=== PATIENT | male | born 1990 ===

== ENCOUNTER 2016-10-21 00:26 | Emergency (ER) | payer BC ==
[2016-10-21 01:36] VITALS: BMI 43.7
[2016-10-21 01:40] VITALS: RESP 18; TEMP 98.7
[2016-10-21] MEDS ORDERED: Sodium Chloride 0.9% 1,000 ML IV STA (01:40)
--- NOTE | 2016-10-21 01:40 | ED PDOC ---
Arrival/HPI - General Time Seen by Provider: 10/21/16 01:36 Historian: Patient - History of Present Illness Narrative History of Present Illness (Text): 10/21/16 01:40 Howard Grayson is a 26 year old male, whose past medical history includes kidney stones, who presents to the ED complaining of left-sided abdominal discomfort for the past week. Patient describes discomfort as a cramping sensation, which worsened tonight. Patient denies any fever, chills, chest pain, shortness of breath, nausea, vomiting, diarrhea, changes in bowel movements, urinary symptoms , back pain, neck pain, headache, dizziness, or any other complaints. Time/Duration: 1 week Symptom Onset: Gradual Symptom Course: Worsening Quality: Cramping Activities at Onset: Rest, Light Context: Home Past Medical History - Provider Review Nursing Documentation Reviewed: Yes - Infectious Disease Hx of Infectious Diseases: None - Tetanus Immunization Tetanus Immunization: Unknown - Past Medical History Past Medical History: No Previous - Cardiac Hx Cardiac Disorders: No - Pulmonary Hx Respiratory Disorders: Yes Hx Asthma: Yes Hx Bronchitis: Yes - Neurological Hx Neurological Disorder: No - HEENT Hx HEENT Disorder: No - Renal Hx Renal Disorder: No - Endocrine/Metabolic Hx Endocrine Disorders: No - Hematological/Oncological Hx Blood Disorders: No - Integumentary Hx Dermatological Disorder: No - Musculoskeletal/Rheumatological Hx Musculoskeletal Disorders: No - Gastrointestinal Hx Gastrointestinal Disorders: No - Genitourinary/Gynecological Hx Genitourinary Disorders: No - Psychiatric Hx Psychophysiologic Disorder: Yes Hx Anxiety: Yes Hx Bipolar Disorder: Yes Hx Depression: No Hx Emotional Abuse: No Hx Physical Abuse: No Hx Substance Use: No (smokes marijuana occasionally) - Surgical History Hx Orthopedic Surgery: Yes (left tibia/osteomylitis) - Anesthesia Hx Anesthesia: Yes Hx Anesthesia Reactions: No Hx Malignant Hyperthermia: No - Suicidal Assessment Feels Threatened In Home Enviroment: No Family/Social History - Physician Review Nursing Documentation Reviewed: Yes Family/Social History: No Known Family HX Smoking Status: Former Smoker (quit in 2014) Hx Alcohol Use: No Hx Substance Use: No (smokes marijuana occasionally) Hx Substance Use Treatment: No Allergies/Home Meds Allergies/Adverse Reactions: Allergies No Known Allergies Allergy (Verified 07/24/16 01:00) Home Medications: Home Meds Medication Instructions Recorded Confirmed Unobtainable 10/21/16 10/21/16 Review of Systems - Physician Review All systems were reviewed & negative as marked: Yes - Review of Systems Constitutional: Normal. absent: Fevers Eyes: Normal ENT: Normal Respiratory: Normal. absent: SOB, Cough Cardiovascular: Normal. absent: Chest Pain Gastrointestinal: Abdominal Pain Genitourinary Male: Normal. absent: Dysuria, Frequency, Hematuria, Urinary Output Changes Musculoskeletal: Normal. absent: Back Pain, Neck Pain Skin: Normal. absent: Rash Neurological: Normal. absent: Headache, Dizziness Endocrine: Normal Hemo/Lymphatic: Normal Psychiatric: Normal Physical Exam Vital Signs Reviewed: Yes Vital Signs Temp Pulse Resp BP Pulse Ox 10/21/16 04:51 64 18 132/74 96 10/21/16 01:39 98.7 F 79 18 142/77 98 Temperature: Afebrile Blood Pressure: Normal Pulse: Regular Respiratory Rate: Normal Appearance: Positive for: Well-Appearing, Non-Toxic, Comfortable Pain Distress: None Mental Status: Positive for: Alert and Oriented X 3 - Systems Exam Head: Present: Atraumatic, Normocephalic Pupils: Present: PERRL Extroacular Muscles: Present: EOMI Conjunctiva: Present: Normal Mouth: Present: Moist Mucous Membranes Neck: Present: Normal Range of Motion Respiratory/Chest: Present: Clear to Auscultation, Good Air Exchange. No: Respiratory Distress, Accessory Muscle Use Cardiovascular: Present: Regular Rate and Rhythm, Normal S1, S2. No: Murmurs Abdomen: Present: Normal Bowel Sounds. No: Tenderness, Distention, Peritoneal Signs Back: Present: Normal Inspection Upper Extremity: Present: Normal Inspection. No: Cyanosis, Edema Lower Extremity: Present: Normal Inspection. No: Edema Neurological: Present: GCS=15, CN II-XII Intact, Speech Normal Skin: Present: Warm, Dry, Normal Color. No: Rashes Psychiatric: Present: Alert, Oriented x 3, Normal Insight, Normal Concentration Medical Decision Making ED Course and Treatment: 10/21/16 01:40 Impression: 26 year old left-sided abdominal cramping for 1 week. Plan: -- CT Abdomen and Pelvis w/o contrast -- Labs, lipase -- Urinalysis -- IV fluids -- Zofran -- Protonix -- Reassess and disposition Prior Visits: Notes and results from previous visits were reviewed. Progress Notes: 10/21/16 02:48 Reviewed radiology, CT Abdomen and Pelvis shows: 1. Enlarged, fatty infiltrated liver. 2. Nonobstructing right nephrolithiasis. 3. Right adrenal nodule. 10/21/16 04:40 On re-evaluation, the patient feels better and is in no acute distress. I have discussed the results and plan with the patient, who expresses understanding. Patient in agreement with plan to discharged home. Patient is stable for discharge. Patient was instructed to follow up with physician/clinic in 1-2 days or return if symptoms worsen or new concerning symptoms arise. Re-evaluation Time: 04:45 Reassessment Condition: Re-examined, Improved - Lab Interpretations Lab Results: 10/21/16 01:53 10/21/16 01:53 Lab Results 10/21/16 03:10: Urine Color Yellow, Urine Appearance Clear, Urine pH 6.0, Ur Specific [place] 1.025, Urine Protein Negative, Urine Glucose (UA) Negative, Urine Ketones Negative, Urine Blood Negative, Urine Nitrate Negative, Urine Bilirubin Negative, Urine Urobilinogen 0.2, Ur Leukocyte Esterase Negative 10/21/16 01:53: WBC 6.4, RBC 4.83, Hgb 15.1, Hct 41.9 L, MCV 86.7, MCH 31.3, MCHC 36.0, RDW 12.7, Plt Count 146, MPV 12.8 H, Gran % 60.6, Lymph % (Auto) 25.3 , [place] % (Auto) 10.0 H, Eos % (Auto) 3.9, Baso % (Auto) 0.2, Gran # 3.86, Lymph # 1.6, [place] # 0.6, Eos # 0.3, Baso # 0.01, PT 10.6, INR 0.98, APTT 27.3, Sodium 136, Potassium 4.2, Chloride 101, Carbon Dioxide 25, Anion Gap 14, BUN 18, Creatinine 0.7, Est GFR ( Amer) > 60, Est GFR (Non-Af Amer) > 60, Random Glucose 102, Calcium 9.4, Total Bilirubin 0.6, AST 81 H, ALT 146 H, Alkaline Phosphatase 62, Total Protein 8.7 H, Albumin 4.3, Globulin 4.3, Albumin/ Globulin Ratio 1.0 L, Lipase 62 I have reviewed the lab results: Yes - RAD Interpretation Narrative RAD Interpretations (Text): CT Abdomen and Pelvis shows: Lower thorax: No acute findings. ABDOMEN: Liver: Enlarged, fatty infiltrated liver. Gallbladder and bile ducts: Unremarkable. No calcified stones. No ductal dilation. Pancreas: Unremarkable. No ductal dilation. Spleen: Unremarkable. No splenomegaly. Adrenals: Right adrenal nodule. Kidneys and ureters: Nonobstructing right nephrolithiasis. Stomach and bowel: Unremarkable. No obstruction. No mucosal thickening. Appendix: No findings to suggest acute appendicitis. PELVIS: Bladder: Unremarkable. No stones. Reproductive: Unremarkable as visualized. ABDOMEN and PELVIS: Intraperitoneal space: Unremarkable. No free air. No significant fluid collection. Bones/joints: No acute fracture. No dislocation. Soft tissues: Unremarkable. Vasculature: Unremarkable. No abdominal aortic aneurysm. Lymph nodes: Unremarkable. No enlarged lymph nodes. IMPRESSION: 1. Enlarged, fatty infiltrated liver. 2. Nonobstructing right nephrolithiasis. 3. Right adrenal nodule. Radiology Orders: 10/21/16 01:41 ABD & PELVIS W/O PO OR IV CONT [CT] Stat [place] Department Supervisor: Radiologist - Medication Orders Current Medication Orders: Discontinued Medications Sodium Chloride (Sodium Chloride 0.9%) 1,000 mls @ 100 mls/hr IV .Q10H STA Stop: 10/21/16 11:39 Last Admin: 10/21/16 02:03 Dose: 100 MLS/HR eMAR Start Stop Document 10/21/16 02:03 SB (Rec: 10/21/16 02:03 [id number]) Intravenous Solution Start Date 10/21/16 Start Time 02:03 End Date 10/21/16 Ondansetron HCl (Zofran Inj) 4 mg IVP STAT STA Stop: 10/21/16 01:41 Last Admin: 10/21/16 02:03 Dose: 4 MG IVP Administration Document 10/21/16 02:03 SB (Rec: 10/21/16 02:03 [id number] Charges for Administration # of IVP Administrations 1 Pantoprazole Sodium (Protonix Inj) 40 mg IVP STAT STA Stop: 10/21/16 01:41 Last Admin: 10/21/16 02:03 Dose: 40 MG IVP Administration Document 10/21/16 02:03 SB (Rec: 10/21/16 02:03 [id number] Charges for Administration # of IVP Administrations 1 - Scribe Statement The provider has reviewed the documentation as recorded by the Angela Calles Provider Attestation: All medical record entries made by the Angela were at my direction and personally dictated by me. I have reviewed the chart and agree that the record accurately reflects my personal performance of the history, physical exam, medical decision making, and the department course for this patient. I have also personally directed, reviewed, and agree with the discharge instructions and disposition. Disposition/Present on Arrival - Present on Arrival Any Indicators Present on Arrival: No History of DVT/PE: No History of Uncontrolled Diabetes: No Urinary Catheter: No History Surgical Site Infection Following: None - Disposition Have Diagnosis and Disposition been Completed?: Yes Diagnosis: Flank pain Disposition: HOME/ ROUTINE Disposition Time: 04:45 Condition: GOOD Discharge Instructions (ExitCare): Flank Pain (ED)
[2016-10-21 02:13] LABS: ADD MANUAL DIFF? NO
[2016-10-21 02:17] LABS: BASO # 0.01 K/mm3 (0.0-2.0); BASO % 0.2 % (0.0-3.0); EOS # 0.3 (0.0-0.7); EOS % 3.9 % (1.5-5.0); GRAN # 3.86 (1.4-6.5); GRAN % 60.6 % (50.0-68.0); HEMATOCRIT 41.9 % (42.0-52.0); LYMPH # 1.6 (1.2-3.4); LYMPH % 25.3 % (22.0-35.0); MEAN CELL VOLUME 86.7 fL (80.0-105.0); MEAN CORPUSCULAR HEMOGLOBIN 31.3 pg (25.0-35.0); MEAN PLATELET VOLUME 12.8 fl (7.0-11.0); MONO # 0.6 (0.1-0.6); PLATELET COUNT 146 10^3/uL (120.0-450.0); RED CELL DISTRIBUTION WIDTH 12.7 % (11.5-14.5); WHITE BLOOD COUNT 6.4 10^3/ul (4.5-11.0)
[2016-10-21 02:24] LABS: INR 0.98 (0.93-1.08); PARTIAL THROMBOPLASTIN TIME 27.3 Seconds (23.7-30.8)
[2016-10-21 02:25] LABS: ALKALINE PHOSPHATASE 62 U/L (38-133); ALT/SGPT 146 U/L (7-56); AST/SGOT 81 U/L (15-59); BILIRUBIN,TOTAL 0.6 mg/dL (0.2-1.3); BLOOD UREA NITROGEN 18 mg/dL (7-21); CALCIUM 9.4 mg/dL (8.4-10.5); CARBON DIOXIDE 25 mmol/L (21-33); CHLORIDE 101 mmol/L (98-107); GFR AFRICAN-AMERICAN > 60; GLUCOSE,RANDOM 102 mg/dL (70-110); LIPASE 62 U/L (23-300); POTASSIUM 4.2 mmol/L (3.6-5.0); SODIUM 136 mmol/L (132-148); TOTAL PROTEIN 8.7 g/dL (5.8-8.3)
[2016-10-21 03:36] LABS: URINE BILIRUBIN NEGATIVE (NEGATIVE); URINE BLOOD NEGATIVE (NEGATIVE); URINE GLUCOSE (UA) NEGATIVE (NEGATIVE); URINE KETONE NEGATIVE (NEGATIVE); URINE LEUKOCYTE ESTERASE NEGATIVE Leu/uL (NEGATIVE); URINE PROTEIN NEGATIVE mg/dL (<30 mg/dL); URINE UROBILINOGEN 0.2 E.U./dL (<1 E.U./dL)
[2016-10-21 03:40] LABS: URINE APPEARANCE CLEAR (CLEAR); URINE COLOR YELLOW (YELLOW)
[2016-10-21 04:52] VITALS: BP 132/74; PULSE 64; O2SAT 96
--- NOTE | 2016-10-21 08:17 | CT ---
PROCEDURE: CT Abdomen and Pelvis without intravenous contrast HISTORY: Left upper quadrant pain COMPARISON: 03/30/2015 TECHNIQUE: CT scan of the abdomen and pelvis was performed for targeted evaluation of urinary calculi without administration of oral or intravenous contrast. This CT exam was performed using one or more of the following dose reduction techniques: Automated exposure control, adjustment of the MA and/or KV according to patient size, and/or use of iterative reconstruction technique. Radiation dose: Total exam DLP = 1384.62 mGy-cm. FINDINGS: LOWER THORAX: The lung bases are clear. LIVER: The liver is enlarged and there is diffuse low-attenuation. No gross lesion or ductal dilatation. GALLBLADDER AND BILE DUCTS: There are no calcified gallstones. PANCREAS: Normal in size without calcifications. No gross lesion or ductal dilatation. SPLEEN: There is borderline splenomegaly. ADRENALS: There is a 17 mm adenoma in the right adrenal gland. The left adrenal gland is normal. KIDNEYS AND URETERS: There are several nonobstructing stones in the upper pole of the right kidney, the largest measures 7 mm. There is no left nephrolithiasis. There is no hydronephrosis. The ureteral jets are not dilated. VASCULATURE: Normal in appearance. No aortic aneurysm. BOWEL: The small bowel loops are normal in caliber. No obstruction. No gross mural thickening. There is moderate amount of stool in the colon. APPENDIX: Normal appendix. PERITONEUM: No free fluid. No free air. LYMPH NODES: No enlarged lymph nodes. BLADDER: Normal in appearance. REPRODUCTIVE: The prostate gland is normal in size. BONES: No acute fracture. Normal in appearance. OTHER FINDINGS: None. IMPRESSION: 1. Nonobstructing stones in the upper pole of the right kidney. No obstructive uropathy. 2. Hepatosplenomegaly and hepatic steatosis. 3. Right adrenal adenoma. A preliminary report was provided by [employer].
== END 2016-10-21 04:53 | disposition home or self-care (01) ==
LOC: ED 00:26
DX: R10.9 Unspecified abdominal pain (principal); Z87.891 Personal history of nicotine dependence
CPT/HCPCS: 74176; 80053; 81003; 83690; 85025; 85610; 85730; 96374; 96375; 99283; C9113; J2405; J7040